=== PATIENT | male | born 1960 | race Asian ===

== ENCOUNTER 2016-11-18 11:58 | Emergency (ER) | payer OTHER ==
[~2016-11-18] VITALS: Ht 170.2 cm; Wt 75.5 kg
[~2016-11-18 11:58] MED LIST: ACET-1311 PO; CHLO1TAB PO; CLR10 PO; MULT-188 PO; MULT-506 PO
[2016-11-18 12:07] VITALS: Ht 170.2 cm; Wt 75.5 kg
[2016-11-18] MEDS ORDERED: SODIUM CHLORIDE 0.9% 1000ML 2,000 ML IV ONE (12:15)
--- NOTE | 2016-11-18 12:24 | EMERGENCY ROOM VISIT NOTE ---
History Report prepared by Cally: Haylee Jansen Under the Supervision of: Dr. Jose Mark M.D. First contact with patient: 12:08 Chief Complaint: VOMITING Stated Complaint: COUGHING BLOOD CLOTS/ STAGE 4 CA History of Present Illness The patient is a 56 year old male who presents to the Emergency Room with complaints of persistent hemoptysis that started about 1 hour [employer]. The patient came to the ED via ambulance. The patient has stage 4 lung cancer and is receiving Taxol and Erbitux chemotherapy. The patient states that he is also on Zofran. 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 The patient denies having blood transfusions in the past, but states that his blood type is AB+. Source of History: patient Onset: 1 hour [employer] Position: chest Quality: other (hemoptysis) Timing: other (persistent) Note: stage 4 lung cancer Review of Systems All systems have been listed, reviewed, and are negative other than those previously mentioned. Please see Additional Medical History Sheet. Past Medical & Surgical Medical Problems: (1) Stage 4 lung cancer (2) Tonsillar tumor Family History No pertinent family history Social History Smoking Status: Never Smoker Drug Use: none Marital Status: single Housing Status: unknown Occupation Status: unemployed Current/Historical Medications Scheduled Acetaminophen (Tylenol), 325 MG PO Q8 Ascorbic Acid (Vitamin C), 500 MG PO DAILY Creatinine (Bulk) (Creatinine), 1 TBS PO DAILY Fish Oil ([place]-3), 1 CAP PO DAILY Loratadine (Claritin), 10 MG PO DAILY Ocuvite Preservision (Ocuvite Preservision), 1 TAB PO DAILY Oxycodone HCl (Oxycontin), 5 MG PO BID [Erbitux], 1 DOSE IV WK [Lorazepam], 1 TAB PO BID [Morphine], 1 TAB PO DAILY [Taxol], 1 DOSE IV WK Scheduled PRN Prochlorperazine Maleate (Compazine), 10 MG PO Q6H PRN for Nausea Allergies Coded Allergies: Penicillins (Unverified Allergy, Unknown, UNKNOWN, 11/18/16) FROM PRE-ANESTHESIA QUESTIONNAIRE Physical Exam Vital Signs Date Time Temp Pulse Resp B/P (MAP) Pulse Ox O2 Delivery O2 Flow Rate FiO2 11/18/16 15:01 37.1 91 16 102/67 100 5.0 11/18/16 14:59 37.1 91 16 103/66 100 5.0 11/18/16 14:47 36.6 98 18 103/65 100 5.0 11/18/16 14:24 102 18 94/56 100 Nasal Cannula 5.0 11/18/16 14:00 111 20 106/60 100 Nasal Cannula 5.0 11/18/16 13:36 112 20 89/54 94 Nasal Cannula 5.0 11/18/16 13:24 119 30 103/65 96 Nasal Cannula 5.0 11/18/16 13:02 36.5 121 24 95/67 94 Nasal Cannula 5.0 11/18/16 12:08 90 Nasal Cannula 5.0 11/18/16 12:07 36.6 141 30 143/93 90 Room Air 11/18/16 12:05 145 Physical Exam GENERAL: Patient awake, alert, oriented x 3. Patient follows commands. Patient has dry blood on face and feet. Patient does not appear toxic. Patient is adequately hydrated and well-nourished. SKIN: No erythema, pallor, cyanosis or rash HEENT: Normal head, pupils equal, reactive to light and accommodation. Ears normal. Oral cavity and posterior pharynx appear normal. Neck: Without adenopathy, no neck vein distention. LUNGS: Clear to auscultation. No wheezes, no rales, no rhonchi. HEART: Tachycardic rate. No murmurs. No gallops. No rubs ABDOMEN: Soft, nontender. No masses, no rebound, no hepatomegaly or splenomegaly. EXTREMITIES: No signs of trauma. No pedal or pretibial edema. No calf or thigh tenderness. NEUROLOGIC: Cranial nerves II-XII within normal limits. No gross motor sensory function deficits. Medical Decision & Procedures ER Provider Diagnostic Interpretation: Radiology results as stated below per my review and radiologist interpretation: SINGLE VIEW CHEST FINDINGS: An AP, portable, upright chest radiograph is obtained. No prior studies are available for comparison at the time of dictation. The examination is degraded by portable technique and patient rotation. The cardiomediastinal silhouette is unremarkable. There is atherosclerotic calcification of the thoracic aorta. Emphysema is suspected and there is chronic appearing interstitial thickening. There is patchy airspace consolidation seen in the right mid to lower lung. Patchy opacities are also seen at the left lung base. No large pleural effusion or pneumothorax is seen. The bony thorax is grossly intact. Degenerative change is present throughout the thoracic spine. IMPRESSION: 1. There is patchy airspace consolidation seen throughout the right lung, greatest at the right lung base. Mild patchy airspace opacities are also identified in the left lower lung. This likely represents multifocal pneumonia. Clinical correlation will be required and radiographic follow-up to resolution is recommended. 2. No large pleural effusion is seen. 3. Suspect emphysema. Electronically signed by: Timmy Amin M.D. 11/18/2016 12:43 PM Dictated Date/Time: 11/18/2016 12:39 PM Laboratory Results 11/18/16 12:20 Red Blood Count 3.49, Mean Corpuscular Volume 89.1, Mean Corpuscular Hemoglobin 28.7, Mean Corpuscular Hemoglobin Concent 32.2, Mean Platelet Volume 8.7, Neutrophils (%) (Auto) 83.0, Lymphocytes (%) (Auto) 12.0, Monocytes (%) (Auto) 2.7, Eosinophils (%) (Auto) 1.3, Basophils (%) (Auto) 0.2, Neutrophils # (Auto) 10.01, Lymphocytes # (Auto) 1.44, Monocytes # (Auto) 0.32, Eosinophils # (Auto) 0.16, Basophils # (Auto) 0.02 11/18/16 12:20 Test 11/18/16 12:20 11/18/16 13:28 White Blood Count 12.05 K/uL (4.8-10.8) Red Blood Count 3.49 M/uL (4.7-6.1) Hemoglobin 10.0 g/dL (14.0-18.0) Hematocrit 31.1 % (42-52) Mean Corpuscular Volume 89.1 fL (80-100) Mean Corpuscular Hemoglobin 28.7 pg (25-34) Mean Corpuscular Hemoglobin Concent 32.2 g/dl (32-36) Platelet Count 582 K/uL (130-400) Mean Platelet Volume 8.7 fL (7.4-10.4) Neutrophils (%) (Auto) 83.0 % Lymphocytes (%) (Auto) 12.0 % Monocytes (%) (Auto) 2.7 % Eosinophils (%) (Auto) 1.3 % Basophils (%) (Auto) 0.2 % Neutrophils # (Auto) 10.01 K/uL (1.4-6.5) Lymphocytes # (Auto) 1.44 K/uL (1.2-3.4) Monocytes # (Auto) 0.32 K/uL (0.11-0.59) Eosinophils # (Auto) 0.16 K/uL (0-0.5) Basophils # (Auto) 0.02 K/uL (0-0.2) RDW Standard Deviation 49.1 fL (36.4-46.3) RDW Coefficient of Variation 15.2 % (11.5-14.5) Immature Granulocyte % (Auto) 0.8 % Immature Granulocyte # (Auto) 0.10 K/uL (0.00-0.02) Prothrombin Time 11.2 SECONDS (9.0-12.0) Prothromb Time International Ratio 1.0 (0.9-1.1) Activated Partial Thromboplast Time 25.3 SECONDS (21.0-31.0) Partial Thromboplastin Ratio 1.0 Est Creatinine Clear Calc Drug Dose 50.2 ml/min Estimated GFR () 58.6 Estimated GFR (Non- 50.6 BUN/Creatinine Ratio 11.6 (10-20) Calcium Level 8.4 mg/dl (8.5-10.1) Total Bilirubin 0.3 mg/dl (0.2-1) Aspartate Amino Transf (AST/SGOT) 47 U/L (15-37) Alanine Aminotransferase (ALT/SGPT) 52 U/L (12-78) Alkaline Phosphatase 109 U/L (45-117) Troponin I < 0.015 ng/ml (0-0.045) Total Protein 6.5 gm/dl (6.4-8.2) Albumin 2.2 gm/dl (3.4-5.0) Globulin 4.3 gm/dl (2.5-4.0) Albumin/Globulin Ratio 0.5 (0.9-2) Bedside Hemoglobin 8.5 g/dl (14.0-18.0) Bedside Hematocrit 25 % (42-52) Bedside Sodium 140 mEq/L (135-144) Bedside Potassium 4.2 mEq/L (3.3-5.0) Bedside Chloride 106 mEq/L (101-112) Bedside Total CO2 18 mEq/l (24-31) Anion Gap 21.0 mmol/L (16-25) Bedside Blood Urea Nitrogen 20 mg/dl (7-18) Bedside Creatinine 1.1 mg/dl (0.6-1.3) Bedside Glucose (other) 193 mg/dl (70-99) Bedside Ionized Calcium (Radha) 0.98 mmol/l (1.12-1.32) Laboratory results as stated above per my review. Medications Administered Medications (Trade) Dose Ordered Sig/Don Route Start Time Stop Time Status Last Admin Dose Admin Sodium Chloride 2,000 ml @ 1,000 mls/hr Q2H ONCE IV 11/18/16 12:15 11/18/16 14:14 DC 11/18/16 13:41 1,000 MLS/HR ECG Indication: vomiting, other (hemoptysis) Rate (beats per minute): 135 Rhythm: sinus tachycardia Findings: no acute ischemic change, no ectopy ED Course 1205: Past medical records reviewed. The patient was evaluated in room B1. A complete history and physical examination was performed. 1215: Sodium Chloride 2000 ml @ 1000 mls/hr IV 1232: Upon reevaluation, the patient is resting comfortably.I discussed today's findings with the patient and his mother. The patient verbalized agreement of the treatment plan. The patient will be evaluated for further management. 1242: Discussed the patient's case with Dr. Max Aggarwal. He does not feel comfortable keeping the patient here and recommends transferring him. 1245: I updated the patient and his family on my conversation with Dr. Santana. The patient is in agreement with the treatment plan. He will be transferred to [facility] in [place] for further evaluation. 1322: I reassessed the patient. His blood pressure was steady, but he is still tachycardic and a second line is being established. 1326: I spoke with the transfer triage officer at [facility] in [place]. She said that she will get back to me. 1345: Discussed the patient's case with Dr. Piper - Critical Care at [facility] in [place]. She said that they don't have beds right now but she will get back to me. 1410: Dr. Piper called me back and informed me that they have a bed for the patient so she accepts the patient as a transfer. She asked me to intubate the patient. The patient will go to [facility] in [place] via helicopter. 1423: I updated the patient and his family about the transfer. They are still in agreement with the treatment plan. Medical Decision Nurses notes reviewed. Medical history sheet reviewed. Differential diagnosis includes but is not limited to: hemoptysis, history of lung cancer, anemia. 56-year-old male with throat cancer with metastasis to his lungs has been treated at [facility] now here with hemoptysis. The patient was brought here via ambulance. The patient had a large amount of bright red blood and clots at home. The patient was hypotensive and tachycardic on arrival. He was immediately seen. 2 lines were started. He was given large volumes of IV saline. He was typed and crossed for packed red cells, platelets and fresh frozen plasma. The patient's blood pressure improved with the IV fluids. I discussed care with multiple consultants. Please see above. There was an opportunity to intubate the patient to protect his airway but I was very concerned about the starving any bleeding site in his throat. Therefore, I did not intubate the patient. I did discuss this with the flight crew who came to pear picker the patient. At time of discharge the patient was not expectorating or coughing up any blood. Medication Reconciliation: I attest that I have personally reviewed the patient' s current medication list. Blood pressure Screening: Patient was found to have normal blood pressure on screening and does not require follow up. Consults Time Called: 1238 Consulting Physician: Dr. Max Aggarwal Returned Call: [phone] Discussed the patient's case with Dr. Max Aggarwal. He does not feel comfortable keeping the patient here and recommends transferring him. Additional Consults: Time Called: 1300 Consulted Physician: Transfer triage officer Returned Call: [phone] Additional Comments: I spoke with the transfer triage officer at [facility] in [place]. She said that she will get back to me. Time Called: -- Consulted Physician: Dr. Piper - Critical Care at [facility] Returned Call: [phone] Additional Comments: Discussed the patient's case with Dr. Piper - Critical Care at [facility] in [place]. She said that they don't have beds right now but she will get back to me. Impression Primary Impression: Hemoptysis Additional Impressions: Anemia History of throat cancer History of lung cancer Critical Care I have personally spent greater than 90 minutes of critical care time in the direct management of this patient. This includes bedside care, interpretation of diagnostic studies, and testing, discussion with consultants, patient, and family members, and other required patient management activities. This 90 minutes is in excess of all separately billable procedures. Scribe Attestation The scribe's documentation has been prepared under my direction and personally reviewed by me in its entirety. I confirm that the note above accurately reflects all work, treatment, procedures, and medical decision making performed by me. Departure Information Dispostion Transfer Acute Care Facility ([facility] in [place]) Referrals No Doctor, Assigned (PCP) Patient Instructions My [facility] Problem Qualifiers Additional Impressions: Anemia Anemia type: unspecified type Qualified Codes: D64.9 - Anemia, unspecified
[2016-11-18 12:30] LABS: ISTAT CREATININE 1.4 mg/dl (0.6-1.3); ISTAT HEMOGLOBIN 10.2 g/dl (14.0-18.0); ISTAT IONIZED CALCIUM 1.09 mmol/l (1.12-1.32)
[2016-11-18 12:34] LABS: HEMATOCRIT 31.1 % (42-52); MEAN CELL VOLUME 89.1 fL (80-100); MEAN CORPUSCULAR HEMOGLOBIN 28.7 pg (25-34); MEAN CORPUSCULAR HGB CONC 32.2 g/dl (32-36); MEAN PLATELET VOLUME 8.7 fL (7.4-10.4); PLATELET COUNT 582 K/uL (130-400); RED BLOOD COUNT 3.49 M/uL (4.7-6.1); WHITE BLOOD COUNT 12.05 K/uL (4.8-10.8)
[2016-11-18 12:42] LABS: PROTHROMBIN TIME (PATIENT) 11.2 SECONDS (9.0-12.0)
--- NOTE | 2016-11-18 12:45 | DIAGNOSTIC IMAGING REPORT ---
SINGLE VIEW CHEST CLINICAL HISTORY: Hemoptysis. FINDINGS: An AP, portable, upright chest radiograph is obtained. No prior studies are available for comparison at the time of dictation. The examination is degraded by portable technique and patient rotation. The cardiomediastinal silhouette is unremarkable. There is atherosclerotic calcification of the thoracic aorta. Emphysema is suspected and there is chronic appearing interstitial thickening. There is patchy airspace consolidation seen in the right mid to lower lung. Patchy opacities are also seen at the left lung base. No large pleural effusion or pneumothorax is seen. The bony thorax is grossly intact. Degenerative change is present throughout the thoracic spine. IMPRESSION: 1. There is patchy airspace consolidation seen throughout the right lung, greatest at the right lung base. Mild patchy airspace opacities are also identified in the left lower lung. This likely represents multifocal pneumonia. Clinical correlation will be required and radiographic follow-up to resolution is recommended. 2. No large pleural effusion is seen. 3. Suspect emphysema. Electronically signed by: Timmy Amin M.D. 11/18/2016 12:43 PM Dictated Date/Time: 11/18/2016 12:39 PM
[2016-11-18 12:51] LABS: ALT/SGPT 52 U/L (12-78); AST/SGOT 47 U/L (15-37); BLOOD UREA NITROGEN 17 mg/dl (7-18); BUN/CREATININE RATIO 11.6 (10-20); CALCIUM 8.4 mg/dl (8.5-10.1); CARBON DIOXIDE 17 mmol/L (21-32); CHLORIDE 106 mmol/L (98-107); GLUCOSE 223 mg/dl (70-99); POTASSIUM 3.9 mmol/L (3.5-5.1); SODIUM 140 mmol/L (136-145)
[2016-11-18 12:56] LABS: ALB/GLOB RATIO 0.5 (0.9-2); ALKALINE PHOSPHATASE 109 U/L (45-117)
[2016-11-18 13:08] LABS: BASO % 0.2 %; BASO ABS # 0.02 K/uL (0-0.2); COMPLETE YES; EOS % 1.3 %; IG% 0.8 %; LYMPH ABS # 1.44 K/uL (1.2-3.4); MONO % 2.7 %
[2016-11-18] MEDS ORDERED: TAXOL IV (13:20)
[2016-11-18] MEDS ORDERED: LORAZEPAM PO (13:20)
[2016-11-18] MEDS ORDERED: MORPHINE PO (13:20)
[2016-11-18] MEDS ORDERED: OXYSR/10 PO (13:20)
[2016-11-18] MEDS ORDERED: ERBITUX IV (13:20)
[2016-11-18] MEDS ORDERED: PROC1TAB5 PO (13:21)
[2016-11-18] MEDS ORDERED: ACET-1311 PO (13:23)
[2016-11-18] MEDS ORDERED: OMEG10007 PO (13:25)
[2016-11-18] MEDS ORDERED: ASCA500 PO (13:25)
[2016-11-18] MEDS ORDERED: MULT-190 PO (13:25)
[2016-11-18] MEDS ORDERED: CLR10 PO (13:25)
[2016-11-18] MEDS ORDERED: CREA1POW PO (13:25)
[2016-11-18 13:41] LABS: ISTAT CREATININE 1.1 mg/dl (0.6-1.3); ISTAT HEMOGLOBIN 8.5 g/dl (14.0-18.0); ISTAT IONIZED CALCIUM 0.98 mmol/l (1.12-1.32)
[2016-11-18 14:24] VITALS: O2SAT 100
[2016-11-18 14:47] VITALS: BP 103/65; PULSE 98; TEMP 36.6; O2SAT 100
[2016-11-18 14:59] VITALS: BP 103/66; PULSE 91; TEMP 37.1; O2SAT 100
[2016-11-18 15:01] VITALS: BP 102/67; PULSE 91; TEMP 37.1; O2SAT 100
== END 2016-11-18 15:16 | disposition short-term general hospital (02) ==
LOC: EDUNIT# 11:58 → C.EDB 12:02
DX: R04.2 Hemoptysis (principal); D64.9 Anemia, unspecified; C78.00 Secondary malignant neoplasm of unspecified lung; Z85.818 Personal history of malignant neoplasm of other sites of lip, oral cavity, and pharynx; Z79.899 Other long term (current) drug therapy